=== PATIENT | female | born 1940 | race Caucasian/White ===

== ENCOUNTER → 2021-06-15 | Outpatient (CLI) | payer MEDICARE ==
--- NOTE | 2021-06-15 14:46 | Diagnostic Imaging Report ---
INDICATION: Dyspnea PA and lateral views of the chest are obtained. There is no previous study for comparison. Overall heart size and pulmonary vascularity are within normal limits. There is mild increased density along the inferior margin of the right hilum which could represent area of pneumonitis or scarring. No consolidation, pneumothorax or pleural fluid is seen. IMPRESSION: Right infrahilar pulmonary density could represent area of focal pneumonitis or scarring. Followup PA and lateral views of the chest would be useful to document stability or resolution. Dictated by: Dictated on workstation # [id number]
== END ==
LOC: RAD FS 14:18
PROVIDERS: ATTEND Internal Medicine Cardiovascular Disease
DX: J98.4 Other disorders of lung (principal)
CPT/HCPCS: 71046

== ENCOUNTER → 2021-06-29 | Outpatient (CLI) | payer MEDICARE | LOC: CARD 13:00 | PROVIDERS: ATTEND Internal Medicine Cardiovascular Disease | DX: I08.0 Rheumatic disorders of both mitral and aortic valves (principal) | CPT/HCPCS: 93306 ==

== ENCOUNTER → 2021-07-02 | Outpatient (CLI) | payer MEDICARE ==
[~2021-07-02] VITALS: Ht 167 cm; Wt 86.0 kg
[~2021-07-02] MED LIST: CATHETER FLUSH 10 ML SYR IV PRN; REGADENOSON 0.4 MG/5 ML SYR (LEXISCAN) IV ONE
[2021-07-02 09:03] VITALS: BP 143/67
--- NOTE | 2021-07-02 12:01 | NUCLEAR STRESS TEST ---
REGADENOSON NUCLEAR STRESS Date of procedure: 07/02/2021. Primary care provider: Flex Kearney MD Admitting physician: Jaziel Dave Jr., MD. INDICATION: Abnormal ECG. BASELINE ELECTROCARDIOGRAM: Sinus rhythm with low voltage in the precordial leads and possible old anterior myocardial infarction. STRESS TEST PROCEDURE: The patient was administered 0.4 mg of intravenous Regadenoson. The resting heart rate was 76 bpm and the peak heart rate was 92 bpm. The resting blood pressure was 160/77 mmHg and the minimum blood pressure was 140/66 mmHg. This represents a normal heart rate and a normal blood pres sure response to Regadenoson. The test was stopped due to the protocol. There was no chest discomfort during the test. There were no arrhythmias during the test. There were no significant stress induced electrocardiogram changes. NUCLEAR PROCEDURE: The patient was administered 10.3 mCi of intravenous technetium 99m Tetrofosmin at rest for the rest images. The patient was subs equently administered 28.9 mCi of intravenous technetium 99m Tetrofosmin at peak stress for the stress images. Following an appropriate wait after each injection, imaging was obtained. The images were subsequently processed and reformatted in the usual views. Gated imaging was obtained. The image quality was adequate but with some degree of gastrointestinal and breast attenuation artifact. CT attenuation correction was used as a adjunct to standard imaging. Both the corrected and uncorrected images were reviewed for interpretation. NUCLEAR RESULTS: There was normal myocardial perfusion in all segments without evidence of infarction or ischemia. There was normal left ventricular chamber size with an end-diastolic volume of 43 mL and an end-systolic volume of 13 mL. There was no evidence of transient ischemic dilatation. The TID ratio was 0.95. There was normal wall motion in all segments with a calculated ejection fraction of 70%. IMPRESSION: 1. Normal heart rate and blood pressure response to regadenoson. 2. There was no chest discomfort, arrhythmias, or electrocardiogram changes during the test. 3. There was normal myocardial perfusion in all segments without evidence of infarction or ischemia. 5. There was normal wall motion in all segments with a calculated ejection fraction of 70%. Certain portions of this document may have been dictated utilizing voice recognition technology. Inherent to this technology, typographical and grammatical errors may exist. As much as I am diligent to identify and correct these mistakes, some errors may remain in the document. JAZIEL DAVE JR, MD Jul 02, 2021 12:01
== END ==
LOC: CARD 08:00
PROVIDERS: ATTEND Internal Medicine Cardiovascular Disease
DX: R94.31 Abnormal electrocardiogram [ECG] [EKG] (principal)
CPT/HCPCS: 78452; 93017; A9502

== ENCOUNTER → 2021-07-22 | Outpatient (CLI) | payer MEDICARE ==
--- NOTE | 2021-07-22 16:50 | Diagnostic Imaging Report ---
Indication: Dyspnea on exertion PA and lateral chest Heart size and pulmonary vascularity are normal. Lungs are clear. There are no effusions or pneumothoraces. IMPRESSION: Negative chest Dictated by: Dictated on workstation # [id number]
== END ==
LOC: RAD FS 16:17
PROVIDERS: ATTEND Internal Medicine Cardiovascular Disease
DX: R06.09 Other forms of dyspnea (principal)
CPT/HCPCS: 71046

== ENCOUNTER → 2022-08-03 | Outpatient (CLI) | payer MEDICARE | LOC: CARDFS 14:55 | PROVIDERS: ATTEND Internal Medicine Cardiovascular Disease | DX: I71.2 Thoracic aortic aneurysm, without rupture (principal); I08.0 Rheumatic disorders of both mitral and aortic valves | CPT/HCPCS: 93306 ==